=== PATIENT | female | born 1955 | race Caucasian/White ===

== ENCOUNTER 2022-06-05 08:04 | Outpatient (RCR) | payer MEDICARE, SELFPAY | END 2022-06-24 12:57 | disposition home or self-care (01) | LOC: HO.WCC 08:04 | PROVIDERS: PCP Family Medicine; Visit Provider Surgery | DX: I87.332 Chronic venous hypertension (idiopathic) with ulcer and inflammation of left lower extremity (principal); L97.821 Non-pressure chronic ulcer of other part of left lower leg limited to breakdown of skin; I73.9 Peripheral vascular disease, unspecified; I48.91 Unspecified atrial fibrillation | CPT/HCPCS: 11042; 97597; 99212 ==